=== PATIENT | male | born 1930 | race Caucasian/White ===

== ENCOUNTER 2017-12-20 06:55 | Inpatient (IN) | payer MEDICARE, MEDICAID ==
[2017-12-20] VITALS (11 sets, daily range): BP systolic 121–155; BP diastolic 58–82
[~2017-12-20] VITALS: Ht 172.7 cm; Wt 94.3 kg
[~2017-12-20 06:55] MED LIST: BRILINTA90 MG PO; JANUMET 50-5001 EACH ORAL; METFORMIN HCL850 M1 ORAL; PROSCAR5 MG ORAL; RAPAFLO4 MG ORAL; SOTALOL80 M1 ORAL; VESICARE5 MG ORAL; [UNRECOGNIZED DRUG - OTHER] IM
[2017-12-20] MEDS ORDERED: ceFAZolin sod 1 GM in D5W 55 ML IVPB SCH (07:00)
[2017-12-20] MEDS ORDERED: Midazolam 2mg/2ml Inj ONE (07:32)
[2017-12-20] MEDS ORDERED: fentaNYL 100 mcg/2 mL IV ONE (07:32)
[2017-12-20] MEDS ORDERED: Propofol 200mg/20ml IV ONE (07:32)
[2017-12-20] MEDS ORDERED: TAMSULOSIN HCL0.4 MG ORAL (07:56)
--- NOTE | 2017-12-20 07:57 | Pre-Procedure Note/Attestation ---
Pre-Procedure Note/Attestation Complete Prior to Procedure Procedure Narrative: TURP Indications for Procedure Pre-Operative Diagnosis: retention Attestation I attest that I discussed the nature of the procedure; its benefits; risks and complications; and alternatives (and the risks and benefits of such alternatives ), prior to the procedure, with the patient (or the patient's legal insurance claim representative). I attest that, if there was a reasonable possibility of needing a blood transfusion, the patient (or the patient's legal insurance claim representative) was given the [facility] standardized written summary, pursuant to the Anand Randal Blood Safety Act ([place] Health and Safety Code # 1645, as amended). I attest that I re-evaluated the patient just prior to the surgery and that there has been no change in the patient's H&P, except as documented below: Hong Trejo MD Dec 20, 2017 07:57
[2017-12-20] MEDS ORDERED: NS Irrig 4000ml IRRIG ONE ×3 (08:00→08:54)
[2017-12-20] MEDS ORDERED: Tubing IV Secondary IV ONE (08:00)
[2017-12-20] MEDS ORDERED: Sterile Water Irrig 1000ml IRRIG ONE (08:45)
[2017-12-20] MEDS ORDERED: LR 1000ml ONE (08:45)
[2017-12-20] MEDS ORDERED: NS Irrig 1000ml ONE (08:45)
[2017-12-20] MEDS ORDERED: cefOXitin 1gm Inj ONE (08:48)
[2017-12-20] MEDS ORDERED: LR 1000ml 1,000 ML IVLG SCH (09:21)
--- NOTE | 2017-12-20 09:21 | Anethesia Preoperative Eval ---
Anesthesia Pre-op PMH/ROS General Date of Evaluation: Dec 20, 2017 Time of Evaluation: 08:38 Anesthesiologist: Sanchez ASA Score: ASA 3 Mallampati Score Class I : Soft palate, uvula, fauces, pillars visible Class II: Soft palate, uvula, fauces visible Class III: Soft palate, base of uvula visible Class IV: Only hard plate visible Mallampati Classification: Class III Surgeon: Maya Diagnosis: Urinary retention Surgical Procedure: TURP Anesthesia History: none Social History: smoking - h/o Family History: no anesthesia problems Allergies: Coded Allergies: No Known Allergies (Unverified , 12/09/15) Past Medical History Cardiovascular: Reports: HTN, CAD - stents in place no recent CP, arrhythmia - AFib paceri n place; Denies: IA, valve dz, other Pulmonary: Reports: HEAVENLY; Denies: asthma, COPD, other Gastrointestinal/Genitourinary: Reports: GERD; Denies: CRI, ESRD, other Neurologic/Psychiatric: Denies: dementia, CVA, depression/anxiety, TIA, other Endocrine: Reports: DM - stable on pills; Denies: hypothyroidism, steroids, other HEENT: Denies: cataract (L), cataract (R), glaucoma, EYAK (L), EYAK (R), other Hematology/Immune: Reports: bleeding disorder - off anticoagulants; Denies: anemia, DVT, other Musculoskeletal/Integumentary: Reports: DJD; Denies: OA, RA, DDD, edema, other Other: other - overweight PMH Narrative: as above PSxH Narrative: T&A cholecystectomy, TUPR suprapubic catheter placement Anesthesia Pre-op Phys. Exam Physician Exam Last Vital Signs Date Time Temp Pulse Resp B/P (MAP) Pulse Ox O2 Delivery O2 Flow Rate FiO2 12/20/17 07:51 98.1 67 18 155/77 97 Room Air 98.1 Constitutional: NAD Neurologic: CN 2-12 intact Cardiovascular: RRR, no M/R/G Respiratory: CTA Gastrointestinal: S/NT/ND Airway Exam Mallampati Score: Class III MO: limited Neck: short ROM: limited Teeth: missing Dentures: no upper, no lower Anesthesia Pre-op A/P Labs see chart Accucheck 113 at admission Studies Pre-op Studies: EKG - UT Risk Assessment & Plan Assessment: ASA 3 Plan: GA with LMA Status Change Before Surgery: No Pre-Antibiotics Drug: Cefoxitin 1gr. Given Within 1 Hr of Incision: Yes Time Given: 09:10 Vipul Bradfrod MD Dec 20, 2017 09:21
[2017-12-20] MEDS ORDERED: fentaNYL 100 mcg/2 mL IV PRN (09:30)
[2017-12-20] MEDS ORDERED: DiphenhydrAMINE 50mg/ml Inj IVP PRN (09:30)
--- NOTE | 2017-12-20 10:27 | Brief Operative Note ---
Immediate Post Operative Note Operative Note Pre-op Diagnosis: retention Procedure: TURP Post-op Diagnosis: same Post-op Diagnosis: same as pre-op Surgeon: josie trejo Anesthesia: general Specimen: yes Complications: none Condition: stable Fluids: 1000 Estimated Blood Loss: minimal Implant(s) used?: No Hong Trejo MD Dec 20, 2017 10:27
[2017-12-20] MEDS ORDERED: Norco 5mg/325mg tab ORAL PRN (10:30)
[2017-12-20] MEDS ORDERED: Morphine Sulfate 4mg/ml Inj IVP PRN (10:30)
--- NOTE | 2017-12-20 10:43 | Immediate Post-Op Evaluation ---
Immediate Post-Op Evalulation Immediate Post-Op Evalulation Procedure: TURP Suprapubic catheter removal Date of Evaluation: Dec 20, 2017 Time of Evaluation: 10:42 IV Fluids: 800 Blood Products: none Estimated Blood Loss: 200 Urinary Output: n/a Blood Pressure Systolic: 142 Blood Pressure Diastolic: 68 Pulse Rate: 62 Respiratory Rate: 20 O2 Sat by Pulse Oximetry: 99 Temperature (Fahrenheit): 97.4 Pain Score (1-10): 2 Nausea: No Vomiting: No Complications none Patient Status: awake, patent, none Hydration Status: adequate Vipul Bradford MD Dec 20, 2017 10:43
[2017-12-20] MEDS ORDERED: Zemuron 50mg/5ml Inj IV ONE (10:45)
[2017-12-20 11:43] LABS: BASOPHILS % (AUTO) 0.9 % (0.0-2.0); EOSINOPHILS % (AUTO) 1.4 % (0.0-3.0); HEMATOCRIT 40.3 % (42.0-52.0); HEMOGLOBIN 13.2 G/DL (14.2-18.0); LYMPHOCYTES % (AUTO) 41.4 % (20.0-45.0); MEAN CORPUSCULAR VOLUME 88 FL (80-99); NEUTROPHILS % (AUTO) 49.4 % (45.0-75.0); PLATELET COUNT 339 K/UL (150-450); RED BLOOD COUNT 4.59 M/UL (4.70-6.10); RED CELL DISTRIBUTION WIDTH 12.6 % (11.6-14.8); WHITE BLOOD COUNT 7.4 K/UL (4.8-10.8)
[2017-12-20 11:49] LABS: ANION GAP 7 mmol/L (5-15); BLOOD UREA NITROGEN 25 mg/dL (7-18); CALCIUM 8.4 MG/DL (8.5-10.1); CARBON DIOXIDE 27 MMOL/L (21-32); CHLORIDE 107 MMOL/L (98-107); CREATININE 1.2 MG/DL (0.55-1.30); POTASSIUM 3.9 MMOL/L (3.5-5.1); SODIUM 140 MMOL/L (136-145)
[2017-12-20] MEDS ORDERED: ATORVASTATIN CA10 MG ORAL (12:11)
[2017-12-20] MEDS ORDERED: NITROFURANTOIN100 M2 ORAL (12:12)
[2017-12-20] MEDS ORDERED: AMARYL1 MG ORAL (12:14)
[2017-12-20] MEDS ORDERED: BYDUREON2 MG SUBQ (12:17)
[2017-12-20] MEDS ORDERED: BETHANECHOL CHL25 MG ORAL (12:18)
[2017-12-20] MEDS: D5 1/2NS w/KCl 20mEq 1,000 ML IV SCH ×2 (13:21→23:13)
[2017-12-20] MEDS ORDERED: ceFAZolin sod 2 GM in D5W 110 ML IV SCH (14:00)
[2017-12-20] MEDS: ceFAZolin 2gm/50ml Premix 50 ML IV SCH (18:15)
[2017-12-20] MEDS: Docusate 100mg cap ORAL SCH (18:15)
[2017-12-20] MEDS: NovoLOG Insulin Flexpen SUBQ SCH ×2 (18:16→21:19)
[2017-12-20] MEDS: Tamsulosin 0.4mg cap ORAL SCH (21:12)
[2017-12-20] MEDS: Sotalol 80mg tab ORAL SCH (21:13)
[2017-12-21] VITALS: BP 139/63
[2017-12-21] MEDS: ceFAZolin 2gm/50ml Premix 50 ML IV SCH ×2 (01:05→09:03)
[2017-12-21 04:00] VITALS: BP 133/51
[2017-12-21] MEDS: metFORMIN 500mg tab ORAL SCH ×2 (06:33→16:34)
[2017-12-21] MEDS: sitaGLIPtin 50mg tab ORAL SCH ×2 (06:33→16:34)
[2017-12-21] MEDS: NovoLOG Insulin Flexpen SUBQ SCH ×4 (06:34→20:41)
[2017-12-21 06:35] LABS: BASOPHILS % (AUTO) 0.6 % (0.0-2.0); EOSINOPHILS % (AUTO) 1.4 % (0.0-3.0); HEMOGLOBIN 12.4 G/DL (14.2-18.0); LYMPHOCYTES % (AUTO) 20.8 % (20.0-45.0); MEAN CORPUSCULAR VOLUME 88 FL (80-99); MONOCYTES % (AUTO) 7.7 % (1.0-10.0); NEUTROPHILS % (AUTO) 69.4 % (45.0-75.0); PLATELET COUNT 318 K/UL (150-450); RED BLOOD COUNT 4.11 M/UL (4.70-6.10); RED CELL DISTRIBUTION WIDTH 12.6 % (11.6-14.8); WHITE BLOOD COUNT 9.1 K/UL (4.8-10.8)
[2017-12-21 06:55] LABS: ANION GAP 7 mmol/L (5-15); BLOOD UREA NITROGEN 20 mg/dL (7-18); CALCIUM 8.1 MG/DL (8.5-10.1); CARBON DIOXIDE 24 MMOL/L (21-32); CHLORIDE 106 MMOL/L (98-107); CREATININE 1.2 MG/DL (0.55-1.30); POTASSIUM 4.1 MMOL/L (3.5-5.1); SODIUM 137 MMOL/L (136-145)
[2017-12-21 08:00] VITALS: BP 153/81
[2017-12-21] MEDS: Sotalol 80mg tab ORAL SCH ×2 (09:03→20:33)
[2017-12-21] MEDS: Docusate 100mg cap ORAL SCH ×2 (09:03→18:19)
[2017-12-21] MEDS: Bethanechol 25mg Tab ORAL SCH ×3 (09:03→18:19)
[2017-12-21] MEDS: D5 1/2NS w/KCl 20mEq 1,000 ML IV SCH ×2 (09:09→18:23)
--- NOTE | 2017-12-21 11:04 | 48 Hour Post Anesthesia Eval ---
Post Anesthesia Evaluation Procedure: TURP Suprapubic catheter removal Date of Evaluation: Dec 21, 2017 Time of Evaluation: 11:03 Blood Pressure Systolic: 136 0: 64 Pulse Rate: 62 Respiratory Rate: 20 Temperature (Fahrenheit): 97.6 O2 Sat by Pulse Oximetry: 98 Airway: patent Nausea: No Vomiting: No Pain Intensity: 2 Hydration Status: adequate Cardiopulmonary Status: stable Mental Status/LOC: patient returned to baseline Follow-up Care/Observations: n/a Post-Anesthesia Complications: none Follow-up care needed: ready to discharge Vipul Bradford MD Dec 21, 2017 11:04
[2017-12-21 12:00] VITALS: BP 135/53
--- NOTE | 2017-12-21 15:00 | Consultation ---
DATE OF CONSULTATION: 12/21/2017 INTERNAL MEDICINE CONSULTATION CONSULTING PHYSICIAN: Bassam Cintron M.D. HISTORY OF PRESENT ILLNESS: This is an 87-year-old male, who has undergone successful TURP and placement of suprapubic catheter yesterday by Dr. Hong Trejo. The patient is doing well postoperative day #1. PAST MEDICAL HISTORY: Notable for hypertension, CHF, diabetes mellitus, hearing loss. He also has a history of previous nephrolithiasis, permanent pacemaker, cardiac stent, and cholecystectomy. MEDICATIONS: His list of home medications is reviewed and reconciled. He is presently on Urecholine, Proscar, Januvia, metformin, Lipitor, Betapace, Flomax, Colace, NovoLog sliding scale, He is also on Ancef IV. REVIEW OF SYSTEMS: Denies any headaches, hematemesis, melena, or hematochezia. PHYSICAL EXAMINATION: GENERAL: Reveals an 87-year-old male. HEENT: Unremarkable. CHEST: Clear breath sounds bilaterally. ABDOMEN: Soft. NEUROLOGIC: Nonfocal. LABORATORY DATA: Lab testing preoperatively within normal limits. Postoperatively, his white count is 9.1, hemoglobin 12.4. Chemistries are normal. IMPRESSION: 1. Postoperative day #1, status post TURP. 2. Chronic suprapubic catheter. 3. Cardiac stent. 4. Permanent pacemaker. 5. Diabetes mellitus. 6. History of CHF. 7. Hypertension. 8. Atrial fibrillation. DISCUSSION: We will continue home medications. We will also resume Xarelto. Anticipate discharge home tomorrow with suprapubic catheter in place. 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 Bassam Cintron M.D. DR: NESTOR JOB#: [id number] CC:
[2017-12-21 16:00] VITALS: BP 136/59
[2017-12-21 20:00] VITALS: BP 151/71
[2017-12-21] MEDS: Tamsulosin 0.4mg cap ORAL SCH (20:28)
[2017-12-22] VITALS: BP 136/51
[2017-12-22 04:00] VITALS: BP 145/55
[2017-12-22] MEDS: D5 1/2NS w/KCl 20mEq 1,000 ML IV SCH (04:45)
[2017-12-22] MEDS: metFORMIN 500mg tab ORAL SCH (05:57)
[2017-12-22] MEDS: sitaGLIPtin 50mg tab ORAL SCH (05:57)
[2017-12-22] MEDS: NovoLOG Insulin Flexpen SUBQ SCH ×2 (06:00→11:59)
[2017-12-22 06:21] LABS: BASOPHILS % (AUTO) 0.5 % (0.0-2.0); EOSINOPHILS % (AUTO) 1.8 % (0.0-3.0); HEMATOCRIT 33.9 % (42.0-52.0); HEMOGLOBIN 11.5 G/DL (14.2-18.0); LYMPHOCYTES % (AUTO) 34.2 % (20.0-45.0); MEAN CORPUSCULAR VOLUME 88 FL (80-99); MONOCYTES % (AUTO) 10.3 % (1.0-10.0); NEUTROPHILS % (AUTO) 53.2 % (45.0-75.0); PLATELET COUNT 262 K/UL (150-450); RED BLOOD COUNT 3.87 M/UL (4.70-6.10); RED CELL DISTRIBUTION WIDTH 12.5 % (11.6-14.8); WHITE BLOOD COUNT 7.2 K/UL (4.8-10.8)
[2017-12-22 06:38] LABS: ANION GAP 7 mmol/L (5-15); BLOOD UREA NITROGEN 13 mg/dL (7-18); CALCIUM 8.2 MG/DL (8.5-10.1); CARBON DIOXIDE 24 MMOL/L (21-32); CHLORIDE 107 MMOL/L (98-107); CREATININE 1.1 MG/DL (0.55-1.30); POTASSIUM 3.7 MMOL/L (3.5-5.1); SODIUM 138 MMOL/L (136-145)
[2017-12-22 08:00] VITALS: BP 146/70
--- NOTE | 2017-12-22 08:08 | Pulmonology Progress Note ---
Assessment/Plan Assessment/Plan IMPRESSION: 1. Postoperative day #2, status post TURP. 2. Suprapubic catheter. 3. Cardiac stent. 4. Permanent pacemaker. 5. Diabetes mellitus. 6. History of CHF. 7. Hypertension. 8. Atrial fibrillation. DISCUSSION: I will continue home medications except Xarelto. Anticipate discharge home today with suprapubic catheter in place. 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 Subjective Interval Events: feeling well; no complaints Constitutional: Reports: no symptoms HEENT: Repors: no symptoms Respiratory: Reports: no symptoms Cardiovascular: Reports: no symptoms Gastrointestinal/Abdominal: Reports: no symptoms Allergies: Coded Allergies: No Known Allergies (Unverified , 12/09/15) Objective Last 24 Hour Vital Signs Date Time Temp Pulse Resp B/P (MAP) Pulse Ox O2 Delivery O2 Flow Rate FiO2 12/22/17 04:00 98.6 71 18 145/55 96 Room Air 98.6 12/22/17 00:00 99.4 85 19 136/51 94 Room Air 99.4 12/21/17 20:33 83 151/71 12/21/17 20:00 Room Air 12/21/17 20:00 95 Room Air 12/21/17 20:00 98.4 83 19 151/71 95 Room Air 98.4 12/21/17 16:00 98.0 80 20 136/59 95 Room Air 98.0 12/21/17 12:00 97.9 72 24 135/53 95 Room Air 97.9 12/21/17 11:04 207.7 62 20 98 12/21/17 09:03 77 153/81 Intake and Output 12/21/17 12/22/17 19:00 07:00 Intake Total 1700 ml 1560 ml Output Total 600 ml Balance 1700 ml 960 ml Intake Oral 500 ml 360 ml IV Total 1200 ml 1200 ml Output Urine Total 600 ml # Bowel Movements 2 General Appearance: no acute distress HEENT: normocephalic Respiratory/Chest: chest wall non-tender Cardiovascular: normal peripheral pulses, normal rate Abdomen: normal bowel sounds Microbiology Date/Time Source Procedure Growth Status 12/20/17 07:50 Nasal Nares MRSA Culture - Final NO METHICILLIN RESISTANT STAPH AUREUS... Complete Laboratory Tests 12/22/17 05:00: White Blood Count 7.2, Red Blood Count 3.87L, Hemoglobin 11.5L, Hematocrit 33.9L , Mean Corpuscular Volume 88, Mean Corpuscular Hemoglobin 29.7, Mean Corpuscular Hemoglobin Concent 34.0, Red Cell Distribution Width 12.5, Platelet Count 262, Mean Platelet Volume 5.6L, Neutrophils (%) (Auto) 53.2, Lymphocytes ( %) (Auto) 34.2, Monocytes (%) (Auto) 10.3H, Eosinophils (%) (Auto) 1.8, Basophils (%) (Auto) 0.5, Sodium Level 138, Potassium Level 3.7, Chloride Level 107, Carbon Dioxide Level 24, Anion Gap 7, Blood Urea Nitrogen 13, Creatinine 1.1, Estimat Glomerular Filtration Rate , Glucose Level 110H, Calcium Level 8.2L Current Medications Medications (Trade) Dose Ordered Sig/Nicole Route PRN Reason Start Time Stop Time Status Last Admin Dose Admin Acetaminophen (Tylenol) 650 mg Q4H PRN ORAL FEVER 12/20/17 10:30 01/19/18 10:29 Acetaminophen (Tylenol) 650 mg Q6H PRN ORAL Mild Pain (Pain Scale 1-3) 12/20/17 10:30 01/19/18 10:29 Acetaminophen/ Hydrocodone Bitart ([employer] 5/325) 1 tab Q4H PRN ORAL Moderate Pain (Pain Scale 4-6) 12/20/17 10:30 12/27/17 10:29 Atorvastatin Calcium (Lipitor) 10 mg BEDTIME ORAL 12/20/17 21:00 01/19/18 20:59 12/21/17 20:27 Bethanechol Chloride (Urecholine) 25 mg THREE TIMES A DAY ORAL 12/21/17 09:00 01/20/18 08:59 12/21/17 18:19 Dextrose (Dextrose 50%) 25 ml STAT PRN IV Hypoglycemia 12/20/17 15:30 01/19/18 15:29 Dextrose (Dextrose 50%) 50 ml STAT PRN IV Hypoglycemia 12/20/17 15:30 01/19/18 15:29 Dextrose/ Electrolytes 1,000 ml @ 100 mls/hr Q10H IV 12/20/17 13:30 01/19/18 13:29 12/22/17 04:45 Docusate Sodium (Colace) 100 mg TWICE A DAY ORAL 12/20/17 18:00 01/19/18 17:59 12/21/17 18:19 Finasteride (Proscar) 5 mg DAILY ORAL 12/21/17 09:00 01/20/18 08:59 12/21/17 09:03 Insulin Aspart (NovoLOG) BEFORE MEALS AND HS SUBQ 12/20/17 16:30 01/19/18 16:29 12/22/17 06:00 Metformin HCl (Glucophage) 500 mg BIAC ORAL 12/21/17 06:30 01/20/18 06:29 12/22/17 05:57 Morphine Sulfate (Morphine Sulfate) 4 mg Q4H PRN IVP pain score 7-10 12/20/17 10:30 12/27/17 10:29 Ondansetron HCl (Zofran) 4 mg Q6H PRN IVP Nausea & Vomiting 12/20/17 10:30 01/19/18 10:29 Sitagliptin Phosphate (Januvia) 50 mg BIAC ORAL 12/21/17 06:30 01/20/18 06:29 12/22/17 05:57 Sotalol HCl (Betapace) 80 mg Q12HR ORAL 12/20/17 21:00 01/19/18 20:59 12/21/17 20:33 Tamsulosin HCl (Flomax) 0.4 mg BEDTIME ORAL 12/20/17 21:00 01/19/18 20:59 12/21/17 20:28 Temazepam (Restoril) 7.5 mg DAILYPRN PRN ORAL Insomnia 12/20/17 10:30 12/27/17 10:29 Bassam Cintron MD Dec 22, 2017 08:08
[2017-12-22] MEDS ORDERED: NORCO 5-325 TA1 EACH ORAL (08:11)
[2017-12-22] MEDS ORDERED: COLACE100 MG ORAL (08:11)
[2017-12-22] MEDS ORDERED: LEVAQUIN500 MG ORAL (08:11)
[2017-12-22] MEDS: Docusate 100mg cap ORAL SCH (09:27)
[2017-12-22] MEDS: Sotalol 80mg tab ORAL SCH (09:27)
[2017-12-22] MEDS: Bethanechol 25mg Tab ORAL SCH (09:27)
[2017-12-22 12:42] VITALS: BP 146/69
--- NOTE | 2017-12-23 05:15 | Operative Note - Dictated ---
DATE OF OPERATION: 12/20/2017 NOTE: POOR AUDIO PREOPERATIVE DIAGNOSES: 1. Urinary retention. 2. Benign prostatic hypertrophy. 3. Neurogenic bladder. POSTOPERATIVE DIAGNOSES: 1. Urinary retention. 2. Benign prostatic hypertrophy. 3. Neurogenic bladder. OPERATION: Transurethral resection of the prostate with change of suprapubic tube. APPAREL CUTTER: Hong Trejo M.D. ANESTHESIA: General. FINDINGS: Enlarged prostate. INDICATION FOR SURGERY: The patient had previous history of and removal of the prostate. He still had suprapubic tube and retention. Treatment options were explained to him in great length including all potential complications. He signed a consent. DESCRIPTION OF SURGERY: He was brought to the operating room, placed in the lithotomy position, and prepped and draped in a standard fashion. Using the resectoscope, the median lobe of the prostate and lateral edge of the prostate were resected the prostatic capsule. All the chips were evacuated with the ExtraFootie evacuator. The suprapubic catheter was removed. The new catheter was placed. 20 mL balloon and a 24-Occitan Siddiqui catheter in the bladder through the urethra. Sponge count and instrument count was correct. The patient tolerated the procedure well. No complications. Hong Trejo M.D. DR: SHARONA JOB#: [id number] CC:
--- NOTE | 2017-12-24 07:43 | Discharge Summary ---
Discharge Summary Hospital Course Date of Admission Dec 20, 2017 at 06:55 Date of Discharge Dec 22, 2017 at 13:45 Admitting Diagnosis Urinary retention Benign prostatic hypertrophy. Neurogenic bladder. Reason for Hospitalization: Elective surgery HPI Rajesh Gomez is a 87 year old male who was admitted on Dec 20, 2017 at 06:55 for Urinary Retention Consultations dr Cintron-IM Procedures s/p by dr Trejo Transurethral resection of the prostate with change of suprapubic tube. Hospital Course Status post surgery course of recovery uneventful initially IV fluids continuous bladder irrigation and manual irrigation prn until urine cleared, then CBI discontinued suprapubic catheter halfway medications resumed except Xarelto internal medicine doctor followed pain management provided: pain was addressed and controlled ambulated freely fall precautions maintain tolerated diet , antiemetics were on board as needed bowel regimen instituted Flomax continued blood sugar was managed with Januvia, metformin and sliding scale of insulin as needed blood pressure was managed with Betapace discharge instruction provided care of suprapubic catheter was reviewed with the patient and family hold Logan for now until further clearance by urologist/surgeon discharge instructions provided patient was stable for discharge home with home health services outpatient follow-up with surgeon as advised FINAL DIAGNOSES Urinary retention Benign prostatic hypertrophy Neurogenic bladder Transurethral resection of the prostate with the change of suprapubic catheter History of nephrolithiasis Hypertension Diabetes mellitus History of CHF Atrial fibrillation Permanent pacemaker Discharge Medications New Medications: Docusate Sodium* (Colace*) 100 Mg Capsule 100 MG ORAL TWICE A DAY, #60 CAP Hydrocodone Bit/Acetaminophen 5-325* ([place] 5-325*) 1 Each Tablet 1 TAB ORAL Q6H PRN, #30 TAB 0 Refills Levofloxacin* (Levaquin*) 500 Mg Tablet 500 MG ORAL DAILY for 10 Days, TAB Continued Medications: Atorvastatin Calcium* (Lipitor*) 10 Mg Tablet 10 MG ORAL BEDTIME, TAB (This prescription has been renewed) Bethanechol Chl* (Bethanechol Chloride*) 25 Mg Tablet 25 MG ORAL THREE TIMES A DAY, TAB (This prescription has been renewed) Exenatide Microspheres (Bydureon) 2 Mg Vial 2 MG SUBQ ONCE A WEEK, VIAL (This prescription has been renewed) Finasteride* (Proscar*) 5 Mg Tablet 5 MG ORAL DAILY, #30 TAB 0 Refills Glimepiride* (Amaryl*) 1 Mg Tablet 2 MG ORAL BIDAC, TAB (This prescription has been renewed) Sitagliptin Phos/Metformin Hcl (Janumet 50-500 Mg Tablet) 1 Each Tablet 1 TAB ORAL TWICE A DAY, TAB Sotalol Hcl (Sotalol*) 80 Mg Tablet 80 MG ORAL BID, #30 TAB 0 Refills Tamsulosin Hcl (Tamsulosin Hcl*) 0.4 Mg Cap.er.24h 0.4 MG ORAL BEDTIME, CAP (This prescription has been renewed) Discontinued Medications: Nitrofurantoin Monohyd/M-Cryst* (Macrobid 100 Mg*) 100 Mg Capsule 100 MG ORAL EVERY 12 HOURS, CAP Discharge Condition Upon Discharge: stable Discharge Disposition Patient was discharged home with home health services Discharge Instructions Discharge Instructions Special Instructions I have been assigned to complete a D/C Summary on this account. I was not involved in the patient management Henrietta Azevedo NP Dec 24, 2017 07:43
== END 2017-12-22 13:45 | disposition home health service (06) | DRG 714 ==
LOC: SDSOVERFLO 06:55 → 3E 12:16
PROC: 0VB08ZZ Excision of Prostate, Via Natural or Artificial Opening Endoscopic (ICD-10-PCS; principal; 2017-12-20 08:30)
DX: N40.1 Benign prostatic hyperplasia with lower urinary tract symptoms (principal); E11.9 Type 2 diabetes mellitus without complications; I48.91 Unspecified atrial fibrillation; R33.8 Other retention of urine; N31.9 Neuromuscular dysfunction of bladder, unspecified; H91.90 Unspecified hearing loss, unspecified ear; Z95.0 Presence of cardiac pacemaker; Z79.84 Long term (current) use of oral hypoglycemic drugs; Z79.4 Long term (current) use of insulin; I11.0 Hypertensive heart disease with heart failure; I50.9 Heart failure, unspecified; E78.5 Hyperlipidemia, unspecified; I25.10 Atherosclerotic heart disease of native coronary artery without angina pectoris; Z95.5 Presence of coronary angioplasty implant and graft; G47.30 Sleep apnea, unspecified
CPT/HCPCS: 36415; 80048; 82962; 85025; 86850; 86900; 86901; 87081; 94003; 94150; 94760; J1815; J2250